=== PATIENT | male | born 1990 | race African-American/Black ===

== ENCOUNTER 2021-01-08 04:07 | Emergency (ER) | payer BC ==
[~2021-01-08] VITALS: Ht 175.3 cm; Wt 124.1 kg
[2021-01-08 05:11] VITALS: BP 174/108; PULSE 86; TEMP 98.7
== END 2021-01-08 05:10 | disposition home or self-care (01) ==
LOC: COL.ER 04:07
DX: S61.012A Laceration without foreign body of left thumb without damage to nail, initial encounter (principal); W26.0XXA Contact with knife, initial encounter